=== PATIENT | female | born 1975 | race Caucasian/White ===

== ENCOUNTER 2018-07-25 11:35 | Outpatient (CLI) | payer BC ==
--- NOTE | 2018-07-25 12:28 | XRay Report ---
RIGHT KNEE, 3 views: History: Pain in right knee. The bony architecture is intact without evidence of fracture or dislocation. No significant soft tissue abnormality is seen. IMPRESSION: Normal right knee.
== END 2018-07-25 11:36 | disposition home or self-care (01) ==
LOC: XRAY 11:35
PROVIDERS: ATTEND Internal Medicine
DX: M25.561 Pain in right knee (principal)

== ENCOUNTER 2018-12-06 08:54 | Outpatient (CLI) | payer BC ==
[2018-12-06 11:09] LABS: Chol/HDL Ratio 4.17 %
[2018-12-09 08:56] LABS: Vitamin D, 25-OH, D2 <4 ng/mL
== END 2018-12-06 08:55 | disposition home or self-care (01) ==
LOC: LAB 08:54
PROVIDERS: ATTEND Internal Medicine
DX: E55.9 Vitamin D deficiency, unspecified (principal); R79.89 Other specified abnormal findings of blood chemistry
CPT/HCPCS: 36415; 80061; 82306